=== PATIENT | female | born 1965 | race African-American/Black ===

== ENCOUNTER → 2018-06-07 | Outpatient (CLI) | payer BC ==
--- NOTE | 2018-06-07 17:11 | RAD ---
History: Left knee pain for 3 weeks. Lateral palpable knot. Comparison: None. Findings: AP, lateral, and oblique views of the left knee. No acute fracture or dislocation is identified. No joint effusion is seen. Mild-moderate medial compartment degeneration is seen with marginal osteophyte formation and mild loss of joint space. Mild lateral and patellofemoral compartment degeneration is seen. Small quadriceps tendon insertional enthesophyte is present. No joint effusion is identified. Impression: 1. No acute osseous traumatic injury identified. 2. 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 Electronically signed by: Jose Shane MD (06/07/2018 5:07 PM) [id number]
== END | disposition home or self-care (01) ==
LOC: RAD 16:05
PROVIDERS: ATTEND Nurse Practitioner Family
DX: M17.12 Unilateral primary osteoarthritis, left knee (principal); M25.762 Osteophyte, left knee; M76.52 Patellar tendinitis, left knee
CPT/HCPCS: 73562